=== PATIENT | male | born 1970 | race African-American/Black ===

== ENCOUNTER 2023-09-11 11:25 | Emergency (ER) | payer OTHER, SELFPAY ==
[2023-09-11] MEDS ORDERED: Ibuprofen 800 MG TAB ONE (11:46)
== END 2023-09-11 13:02 | disposition home or self-care (01) ==
LOC: BURERS 11:25
DX: D17.1 Benign lipomatous neoplasm of skin and subcutaneous tissue of trunk (principal); F17.210 Nicotine dependence, cigarettes, uncomplicated; I10 Essential (primary) hypertension
CPT/HCPCS: 72128